=== PATIENT | female | born 1990 | race Two or more races ===

== ENCOUNTER → 2016-11-15 | Outpatient (CLI) | payer OTHER ==
--- NOTE | 2016-11-15 12:34 | US ---
EXAMINATION TYPE: US OB >= 14 wk fetus DATE OF EXAM: 11/15/2016 10:50 AM COMPARISON: 08/30/2017 CLINICAL HISTORY: Z34.90 ENCOUNTER FOR SUPERVISION OF MITCHELL HOOPER TECHNIQUE: OBTA GESTATIONAL AGE / DATING Physician Established: (35 weeks/5 days) EDC: 12/15/2016 Dates by LMP: unknown Dates by First Scan: (36 weeks/0 days) EDC: 12/13/2016 Dates by Current Scan: (35 weeks/4 days) EDC: 12/16/2016 SURVEY IUP: Single PLACENTA: Anterior PREVIA: No Previa INDY: 16.8 cm Normal CERVICAL LENGTH (transabdominal: miri > 3.0cm): 3.5 cm BIOMETRY PRESENTATION: Vertex LIE: Longitudinal BPD: 8.6 cm 34 weeks / 5 days HC: 32.5 cm 36 weeks / 6 days AC: 32.2 cm 36 weeks / 1 days FL: 6.7 cm 34 weeks / 4 days ESTIMATED WEIGHT IN GRAMS: 2722 grams ESTIMATED WEIGHT IN LBS/OZS: 6 lbs. 0 oz. WEIGHT PERCENTAGE BASED ON ESTABLISHED DATES: 47% HC/AC: 1.0 Normal FL/AC: 21 Normal HEART RATE: 153 bpm RHYTHM: Normal IMPRESSION: Viable 35w4d fetus appears wnl
== END | disposition home or self-care (01) ==
LOC: RADUSWWP 10:13
PROVIDERS: ATTEND Obstetrics & Gynecology
DX: Z36 Encounter for antenatal screening of mother (principal); Z3A.35 35 weeks gestation of pregnancy
CPT/HCPCS: 76805